=== PATIENT | male | born 1970 | race Caucasian/White ===

== ENCOUNTER 2018-11-03 13:58 | Emergency (ER) | payer OTHER ==
[~2018-11-03] VITALS: Ht 182.9 cm; Wt 100.0 kg
[2018-11-03] MEDS ORDERED: AMLODIPINE 5 MG TABLET ONE (14:23)
[2018-11-03] MEDS ORDERED: ENALAPRILAT 1.25 MG/ML, 2ML ONE (14:23)
[2018-11-03 14:29] LABS: BASOPHILS # (AUTO) 0.06 x10^3/uL (0-0.1); BASOPHILS % (AUTO) 1 % (0-1); EOSINOPHILS # (AUTO) 0.12 x10^3/uL (0-0.4); EOSINOPHILS % (AUTO) 1 % (1-7); LYMPHOCYTES % (AUTO) 22 % (22-44); MD NO; MEAN CORPUSCULAR HEMOGLOBIN 28.5 pg (27.5-34.5); MEAN CORPUSCULAR HGB CONC 32.8 g/dL (33.2-36.2); MEAN CORPUSCULAR VOLUME 86.8 fL (81-97); MONOCYTES # (AUTO) 0.89 x10^3/uL (0.2-0.8); MONOCYTES % (AUTO) 8 % (2-9); NEUTROPHILS # (AUTO) 7.68 x10^3/uL (1.8-6.8); NEUTROPHILS % (AUTO) 68 % (42-75); PLATELET COUNT 263 x10^3/uL (130-400); RED BLOOD COUNT 6.43 x10^6/uL (4.38-5.82); RED CELL DISTRIBUTION WIDTH 13.5 % (9.4-14.8)
[2018-11-03] MEDS ORDERED: AMLODIPINE 5 MG TABLET PO ONE (14:30)
[2018-11-03] MEDS ORDERED: LABETALOL 5MG/ML, 20ML IVPush ONE (14:30)
[2018-11-03] MEDS ORDERED: SODIUM CHLORIDE FLUSH 10ML SYR IVF ONE (14:30)
[2018-11-03] MEDS ORDERED: ENALAPRILAT 1.25 MG/ML, 2ML IV ONE (14:30)
[2018-11-03 14:35] LABS: ALBUMIN 4.1 g/dL (3.4-5.0); ANION GAP 7 mmol/L (5-15); CALCIUM 9.1 mg/dL (8.5-10.1); CHLORIDE 106 mmol/L (98-107); CREATININE 1.14 mg/dL (0.7-1.3)
[2018-11-03 14:39] LABS: TROPONIN I 0.027 ng/mL (0.000-0.045)
--- NOTE | 2018-11-03 14:54 | NUR ---
Pt resting in bed, NADN, denies needs.
--- NOTE | 2018-11-03 15:20 | NUR ---
Pt medicated per MAR, denies other needs.
[2018-11-03 15:42] VITALS: BP 170/119
[2018-11-03] MEDS ORDERED: METOPROLOL SUCCINATE 25 MG TAB.ER.24H PO ONE (16:00)
--- NOTE | 2018-11-03 16:02 | NUR ---
Spoke with Malka WOODARD at [facility] to give report on pt. Pt ambulatory out of unit in custody of HUMAIRA GONZALEZ.
== END 2018-11-03 16:05 | disposition home or self-care (01) ==
LOC: ED 14:16
DX: I10 Essential (primary) hypertension (principal); R07.89 Other chest pain
CPT/HCPCS: 36415; 80048; 82040; 84484; 85025; 93005; 96374; 96375

== ENCOUNTER 2019-07-06 22:11 | Emergency (ER) | payer OTHER ==
[~2019-07-06] VITALS: Ht 182.9 cm; Wt 103.0 kg
--- NOTE | 2019-07-06 22:21 | NUR ---
JORDIN SIDDIQI FOR MED CLEARANCE. PT HYPERTENSIVE AT INTAKE. PT REPORTS HX OF SAME, NON-COMPLIANT WITH MEDICATIONS. CURRENTLY ASYMPTOMATIC; DENIES CASTRO/CP/SOB/DIZZINESS. +METH USE BP/SPO2/ECG MONITORING IN PLACE. SINUS TACH ON MONITOR. EKG COMPLETED UPON ARRIVAL.
[2019-07-06] MEDS ORDERED: LABETALOL 5MG/ML, 20ML ONE (22:27)
[2019-07-06] MEDS ORDERED: LABETALOL 5MG/ML, 20ML IVPush ONE (22:30)
[2019-07-06 22:41] LABS: BASOPHILS # (AUTO) 0.03 x10^3/uL (0-0.1); BASOPHILS % (AUTO) 0 % (0-1); EOSINOPHILS # (AUTO) 0.15 x10^3/uL (0-0.4); EOSINOPHILS % (AUTO) 1 % (1-7); LYMPHOCYTES # (AUTO) 1.96 x10^3/uL (1-3.4); LYMPHOCYTES % (AUTO) 16 % (22-44); MD NO; MEAN CORPUSCULAR HEMOGLOBIN 29.7 pg (27.5-34.5); MEAN CORPUSCULAR HGB CONC 33.2 g/dL (33.2-36.2); MEAN CORPUSCULAR VOLUME 89.3 fL (81-97); MONOCYTES # (AUTO) 1.09 x10^3/uL (0.2-0.8); MONOCYTES % (AUTO) 9 % (2-9); NEUTROPHILS # (AUTO) 9.45 x10^3/uL (1.8-6.8); NEUTROPHILS % (AUTO) 75 % (42-75); PLATELET COUNT 282 x10^3/uL (130-400); RED BLOOD COUNT 5.58 x10^6/uL (4.38-5.82); RED CELL DISTRIBUTION WIDTH 13.1 % (9.4-14.8)
--- NOTE | 2019-07-06 22:42 | NUR ---
LABS DRAWN AND SENT WITH PAPER CAP MACHINE OPERATOR, PATIENT MEDICATED PER NOEMI, IN ROOM, XRAY IN ROOM, DENIES NEEDS AT THIS TIME.
[2019-07-06 22:53] LABS: ALANINE AMINOTRANSFERASE 34 U/L (12-78); ALBUMIN 3.7 g/dL (3.4-5.0); ANION GAP 3 mmol/L (5-15); CALCIUM 8.9 mg/dL (8.5-10.1); CHLORIDE 107 mmol/L (98-107); CREATININE 1.15 mg/dL (0.7-1.3)
[2019-07-06 22:58] LABS: ALKALINE PHOSPHATASE 81 U/L (45-117); BILIRUBIN,TOTAL 0.6 mg/dL (0.2-1.0); TOTAL PROTEIN 7.9 g/dL (6.4-8.2); TROPONIN I 0.036 ng/mL (0.000-0.045)
--- NOTE | 2019-07-06 23:02 | NUR ---
PATIENT RESTING ON CARLIE CHINCHILLA OFFICERS IN ROOM, DENIES NEEDS AT THIS TIME.
[2019-07-06 23:25] VITALS: BP 180/118
== END 2019-07-06 23:53 | disposition home or self-care (01) ==
LOC: ED 23:47
DX: I10 Essential (primary) hypertension (principal); Z72.9 Problem related to lifestyle, unspecified; F15.10 Other stimulant abuse, uncomplicated; F10.10 Alcohol abuse, uncomplicated; Y90.0 Blood alcohol level of less than 20 mg/100 ml
CPT/HCPCS: 36415; 71045; 80053; 84484; 85025; 93005; 96374